=== PATIENT | male | born 2000 | race Asian ===

== ENCOUNTER 2022-06-14 19:44 | Emergency (ER) | payer OTHER ==
[~2022-06-14] VITALS: Ht 182.9 cm; Wt 88.6 kg
[2022-06-14] MEDS ORDERED: ACETAMINOPHEN 1000 MG/ISO-OSM 100 ML IV ONE (20:30)
[2022-06-14] MEDS ORDERED: 0.9% SODIUM CHLORIDE 10 ML SYRINGE IVP PRN (20:30)
[2022-06-14] MEDS ORDERED: SODIUM CHLORIDE 0.9% 2,000 ML IV ONE (20:30)
[2022-06-14 20:41] LABS: COVID AG,FIA SOURCE NASAL SWAB
[2022-06-14] MEDS ORDERED: ONDANSETRON HCL 4 MG/2 ML VIAL IVP ONE (21:00)
[2022-06-14] MEDS ORDERED: KETOROLAC TROMETHAMINE 30 MG/ML VIAL IVP ONE (21:00)
[2022-06-14] MEDS ORDERED: FAMOTIDINE 10 MG/ML 2 ML VIAL IVP ONE (21:00)
[2022-06-14 21:02] LABS: BASOPHILS % (AUTO) 0.1 % (0.0-2.0); EOSINOPHILS % (AUTO) 0.4 % (1.0-6.0); HEMATOCRIT 47.7 % (41-53); HEMOGLOBIN 15.9 g/dL (13.5-17.5); LYMPHOCYTES # (AUTO) 0.3 K/uL (1.0-4.8); LYMPHOCYTES % (AUTO) 3.3 % (22.0-44.0); MEAN CORPUSCULAR HEMOGLOBIN 28.2 pg (26.0-34.0); MEAN CORPUSCULAR HGB CONC 33.4 G/dL (31.0-37.0); MEAN CORPUSCULAR VOLUME 85 fL (80-100); MONOCYTES # (AUTO) 0.4 K/uL (0.1-1.0); MONOCYTES % (AUTO) 4.3 % (2.0-9.0); NEUTROPHILS # (AUTO) 9.1 K/uL (1.8-7.7); PLATELET COUNT (AUTO) 304 K/uL (150-450); RED BLOOD CELL COUNT(AUTO) 5.65 MIL/uL (4.50-5.90); RED CELL DISTRIBUTION WIDTH 12.6 % (11.5-14.5)
[2022-06-14 21:08] LABS: NEUTROPHILS % (AUTO) 91.9 % (40.0-70.0)
[2022-06-14 21:10] LABS: ANION GAP 10 mmol/L (8-16); CALCIUM, TOTAL 9.4 mg/dL (8.8-10.5); CARBON DIOXIDE 25 mmol/L (22-29); CHLORIDE 101 mmol/L (98-107); CREATININE 1.08 mg/dL (0.60-1.30); GLUCOSE,RANDOM 112 mg/dL (70-110); POTASSIUM 3.5 mmol/L (3.5-5.1); SODIUM SERUM 136 mmol/L (136-145); UREA NITROGEN, BLOOD 21 mg/dL (7-18)
[2022-06-14 21:12] LABS: GLOMERULAR FILTR. RATE CALC > 60 mL/min (>60)
[2022-06-14 21:13] LABS: PROTHROMBIN TIME 10.6 SEC (9.4-11.6)
[2022-06-14 21:16] LABS: INFLUENZA TYPE A NEGATIVE FOR TYPE A (NEGATIVE); INFLUENZA TYPE B NEGATIVE FOR TYPE B (NEGATIVE)
[2022-06-14 21:16] LABS: ALANINE AMINOTRANSFERASE 52 U/L (12-78); ALBUMIN 4.5 g/dL (3.4-5.0); ALKALINE PHOSPHATASE 83 U/L (46-116); ASPARTATE AMINOTRANSFERASE 24 U/L (15-37); BILIRUBIN,TOTAL 1.3 mg/dL (0.1-1.0); LIPASE 83 U/L (73-393); TOTAL PROTEIN, SERUM 8.5 g/dL (6.4-8.2)
[2022-06-14] MEDS ORDERED: SODIUM CHLORIDE 0.9% 100 ML ONE (21:19)
[2022-06-14] MEDS ORDERED: IOHEXOL 350 MG/ML 100 ML VIAL ONE (21:19)
[2022-06-14 21:34] LABS: B-TYPE NATRIURETIC PEPTIDE < 5 pg/mL (0-100)
[2022-06-14] MEDS ORDERED: SODIUM CHLORIDE 0.9% 640 ML IV ONE (21:45)
[2022-06-14 22:20] LABS: LACTIC ACID 2.1 mmol/L (0.4-2.0)
[2022-06-14 22:44] LABS: APPEARANCE,URINE CLEAR (CLEAR); BILIRUBIN,URINE NEGATIVE (NEGATIVE); GLUCOSE, URINE (UA) NEGATIVE (NEGATIVE); LEUKOCYTE ESTERASE ,URINE NEGATIVE (NEGATIVE); NITRATE,URINE NEGATIVE (NEGATIVE); OCCULT BLOOD,URINE NEGATIVE (NEGATIVE); PH,URINE 7.5 (5.0-8.0); PROTEIN,URINE TRACE mg/dL (NEGATIVE); UROBILINOGEN,URINE <=1.0 mg/dL (<=1.0)
[2022-06-14 22:51] LABS: AMPHET/METH SCREEN,URINE NEGATIVE (NEGATIVE); BARBITURATE SCREEN, URINE NEGATIVE (NEGATIVE); BENZODIAZEPINES SCREEN,URINE NEGATIVE (NEGATIVE); CANNABINOID SCREEN,URINE NEGATIVE (NEGATIVE); COCAINE SCREEN,URINE NEGATIVE (NEGATIVE); METHADONE SCREEN, URINE NEGATIVE (NEGATIVE); OPIATE SCREEN,URINE NEGATIVE (NEGATIVE); PHENCYCLIDINE SCREEN,URINE NEGATIVE (NEGATIVE)
[2022-06-15 02:41] VITALS: BP 107/56
[2022-06-15] MEDS ORDERED: ONDA-104 PO (02:47)
[2022-06-15] MEDS ORDERED: IBUP-1492 PO (02:47)
== END 2022-06-15 03:08 | disposition home or self-care (01) ==
LOC: EMS 19:46
DX: R10.13 Epigastric pain (principal); J02.9 Acute pharyngitis, unspecified; Z20.822 Contact with and (suspected) exposure to COVID-19
CPT/HCPCS: 99291; 70491; 96365; 96375; 76705; 71045; 87426; 80053; 83605; 83690; 83880; 84484; 85025; 85610; 86308; 87040; 87430; 87804; 36415; 74177; 93005; 84145; 81003; 80307 ×2; U0003; G0480; J3490; J1885; J2405; Q9967; J7030; J7050; J0131; C9803